=== PATIENT | male | born 1975 | race Caucasian/White ===

== ENCOUNTER 2020-10-15 18:02 | Emergency (ER) | payer OTHER ==
[~2020-10-15] VITALS: Ht 165.1 cm; Wt 79.4 kg
[2020-10-15] MEDS ORDERED: PERCOCET 5-3251 EACH PO (18:54)
[2020-10-15] MEDS ORDERED: DORZOLAMIDE 2%10 ML LT. EYE (18:55)
[2020-10-15] MEDS ORDERED: ALPHAGAN P5 ML LT. EYE (18:56)
[2020-10-15] MEDS ORDERED: CYCLOPENTOLA1 %/2 M1 LT. EYE (18:57)
[2020-10-15] MEDS ORDERED: TIMOLOL MALEATE5 M2 OPHTHALMIC (18:57)
[2020-10-15 19:12] LABS: CALCIUM 9.4 mg/dL (8.5-10.1); CREATININE 0.9 mg/dL (0.7-1.3); POTASSIUM 3.4 mmol/L (3.5-5.1)
[2020-10-15 19:18] LABS: BASOPHILS 0.3 % (0.0-2.0); EOSINOPHILS 0.3 % (0.0-3.0); HEMATOCRIT 48.9 % (42.0-52.0); HEMOGLOBIN 17.1 gm/dL (14.0-18.0); LYMPHOCYTES 14.4 % (24.0-44.0); MCH 32.1 pg (26.0-34.0); MCHC 35.1 g/dL (28.0-37.0); MCV 91.6 fL (80.0-100.0); MONOCYTES 3.9 % (1.0-8.0); PLATELET COUNT 360 thou/uL (150-400); POLYS 81.1 % (36.0-66.0); RBC 5.33 mil/uL (4.50-6.00); RDW 13.1 % (10.5-14.5); WBC 11.1 thou/uL (4.0-11.0)
[2020-10-15] MEDS ORDERED: ROXICODONE5 M2 PO (19:59)
[2020-10-15 20:19] VITALS: BP 150/93
== END 2020-10-15 20:21 | disposition home or self-care (01) ==
LOC: ER 18:02 → EDBD 18:02 → ER 20:21
PROVIDERS: Emergency Medicine
DX: R51.9 Headache, unspecified (principal); Z79.899 Other long term (current) drug therapy